=== PATIENT | female | born 1990 | race Caucasian/White ===

== ENCOUNTER 2018-01-13 16:08 | Inpatient (IN) | payer BC ==
[~2018-01-13] VITALS: Ht 165.1 cm; Wt 81.4 kg
[~2018-01-13 16:08] MED LIST: IBUP-1222 PO; OXYC-302 PO
[2018-01-13] MEDS ORDERED: AMOX1TAB64 PO (16:20)
[2018-01-13 16:48] VITALS: BP 113/65
[2018-01-13] MEDS: LACTATED RINGERS 1,000 ML IV SCH ×2 (18:10→18:56)
[2018-01-13] MEDS ORDERED: OXYTOCIN 30U/ 0.9% NaCL 500ML 500 ML IV ONE (18:13)
[2018-01-13] MEDS ORDERED: FENTANYL PF 100 MCG/2ML ONE ×2 (18:26→19:54)
[2018-01-13] MEDS ORDERED: FENTANYL PF 100 MCG/2ML IV PRN (18:30)
[2018-01-13] MEDS ORDERED: MISOPROSTOL 200 MCG TABLET ONE (18:33)
[2018-01-13] MEDS ORDERED: LIDOCAINE/PF 1%, 30ML ONE (18:33)
[2018-01-13] MEDS ORDERED: OXYTOCIN 30U/ 0.9% NaCL 500ML 500 ML ONE ×3 (18:34→21:27)
[2018-01-13] MEDS: FENTANYL PF 100 MCG/2ML IVPush PRN ×2 (18:34→20:00)
[2018-01-13 18:42] LABS: BASOPHILS # (AUTO) 0.05 x10^3/uL (0-0.1); BASOPHILS % (AUTO) 0 % (0-1); EOSINOPHILS # (AUTO) 0.23 x10^3/uL (0-0.4); EOSINOPHILS % (AUTO) 2 % (1-7); LYMPHOCYTES # (AUTO) 2.62 x10^3/uL (1-3.4); LYMPHOCYTES % (AUTO) 23 % (22-44); MD NO; MEAN CORPUSCULAR HEMOGLOBIN 29.4 pg (27.0-34.8); MEAN CORPUSCULAR HGB CONC 33.3 g/dL (32.4-35.8); MEAN CORPUSCULAR VOLUME 88.2 fL (80-100); MEAN PLATELET VOLUME 7.6 fL (7.4-10.4); MONOCYTES # (AUTO) 0.82 x10^3/uL (0.2-0.8); MONOCYTES % (AUTO) 7 % (2-9); NEUTROPHILS # (AUTO) 7.65 x10^3/uL (1.8-6.8); NEUTROPHILS % (AUTO) 67 % (42-75); PLATELET COUNT 253 x10^3/uL (130-400); RED BLOOD COUNT 3.76 x10^6/uL (3.82-5.3); RED CELL DISTRIBUTION WIDTH 13.4 % (9.6-15.2)
[2018-01-13] MEDS ORDERED: NEWBORN KIT ONE (18:57)
[2018-01-13] MEDS ORDERED: FENTANYL PF 500 MCG, BUPIVACAINE/PF 0.5%, 30ML 62.5 ML in SODIUM CHLORIDE 0.9% 177.5 ML EPIDCONT SCH (19:00)
[2018-01-13] MEDS ORDERED: ONDANSETRON 2MG/ML, 2ML IV PRN (20:30)
[2018-01-13] MEDS ORDERED: MISOPROSTOL 200 MCG TABLET PR PRN (20:30)
[2018-01-13] MEDS ORDERED: CARBOPROST TROMETHAMINE 250 MCG/ML, 1ML IM PRN (20:30)
[2018-01-13] MEDS ORDERED: ACETAMINOPHEN 325 MG TABLET PO PRN (20:30)
[2018-01-13] MEDS ORDERED: DOCUSATE 100 MG CAPSULE PO PRN (20:30)
[2018-01-13] MEDS ORDERED: METHYLERGONOVINE 0.2 MG/ML IM PRN (20:30)
[2018-01-13] MEDS ORDERED: OXYcodone/APAP 5/325MG TABLET PO PRN (20:30)
[2018-01-13] MEDS: OXYTOCIN 30U/ 0.9% NaCL 500ML 500 ML IV SCH (20:42)
[2018-01-13] MEDS ORDERED: IBUPROFEN 600 MG TABLET ONE (20:48)
[2018-01-13] MEDS: IBUPROFEN 600 MG TABLET PO PRN (20:50)
[2018-01-13 22:05] VITALS: BP 119/75
[2018-01-13 23:59] VITALS: BP 122/72
[2018-01-14 03:15] VITALS: BP 120/75
[2018-01-14] MEDS: IBUPROFEN 600 MG TABLET PO PRN ×2 (03:35→10:59)
[2018-01-14 04:57] LABS: BASOPHILS # (AUTO) 0.03 x10^3/uL (0-0.1); BASOPHILS % (AUTO) 0 % (0-1); EOSINOPHILS # (AUTO) 0.13 x10^3/uL (0-0.4); EOSINOPHILS % (AUTO) 1 % (1-7); LYMPHOCYTES # (AUTO) 2.23 x10^3/uL (1-3.4); LYMPHOCYTES % (AUTO) 15 % (22-44); MD NO; MEAN CORPUSCULAR HEMOGLOBIN 29.4 pg (27.0-34.8); MEAN CORPUSCULAR HGB CONC 33.4 g/dL (32.4-35.8); MEAN PLATELET VOLUME 7.9 fL (7.4-10.4); MONOCYTES # (AUTO) 0.99 x10^3/uL (0.2-0.8); MONOCYTES % (AUTO) 7 % (2-9); NEUTROPHILS # (AUTO) 11.45 x10^3/uL (1.8-6.8); NEUTROPHILS % (AUTO) 77 % (42-75); PLATELET COUNT 220 x10^3/uL (130-400); RED BLOOD COUNT 3.42 x10^6/uL (3.82-5.3); RED CELL DISTRIBUTION WIDTH 13.1 % (9.6-15.2)
[2018-01-14] MEDS: OXYTOCIN 30U/ 0.9% NaCL 500ML 500 ML IV SCH (06:13)
[2018-01-14] MEDS: AMOXICILLIN/CLAV 875-125MG TABLET PO SCH ×2 (07:55→16:35)
[2018-01-14 08:00] VITALS: BP 117/77
[2018-01-14] MEDS ORDERED: AMOXICILLIN/CLAV 875-125MG TABLET PO SCH (08:00)
[2018-01-14] MEDS ORDERED: PRENATAL VIT/IRON/FA 1 EACH TABLET PO SCH (09:00)
[2018-01-14] MEDS ORDERED: IBUP-1222 PO (14:35)
== END 2018-01-14 19:38 | disposition home or self-care (01) | DRG 775 ==
LOC: LDOP 16:08 → LDIP 18:14 → 2NW 22:00
PROVIDERS: ADMIT Obstetrics & Gynecology Gynecology; ATTEND Obstetrics & Gynecology
PROC: 10E0XZZ Delivery of Products of Conception, External Approach (ICD-10-PCS; principal; 2018-01-13)
PROC: 0HQ9XZZ Repair Perineum Skin, External Approach (ICD-10-PCS; 2018-01-13)
DX: O70.0 First degree perineal laceration during delivery (principal); Z37.0 Single live birth; Z3A.39 39 weeks gestation of pregnancy
CPT/HCPCS: 36415; 85025; 86850; 86900; J3010; J2590; J7120

== ENCOUNTER 2018-01-21 10:09 | Emergency (ER) | payer BC ==
[~2018-01-21] VITALS: Ht 165.1 cm; Wt 74.1 kg
[~2018-01-21 10:09] MED LIST changes: +AMOX1TAB64 PO
[2018-01-21 10:14] VITALS: BP 123/88
[2018-01-21 10:37] LABS: MICROSCOPIC AUTO
[2018-01-21 10:40] LABS: CULTURE INDICATED? YES
[2018-01-21] MEDS ORDERED: KETOROLAC 30 MG/1 ML ONE (10:55)
[2018-01-21] MEDS ORDERED: KETOROLAC 60 MG/2 ML IM ONE (11:00)
== END 2018-01-21 11:47 | disposition home or self-care (01) ==
LOC: ED 11:40
DX: K59.00 Constipation, unspecified (principal)
CPT/HCPCS: 74176; 81001; 87086; 96372; 99285; J1885